=== PATIENT | female | born 1930 | race Caucasian/White ===

== ENCOUNTER 2016-08-31 12:35 | Day surgery (SDC) | payer OTHER ==
[2016-08-30 13:07] VITALS: BMI 24.4
[2016-08-31] MEDS ORDERED: PROPOFOL 20 ML ONE ×2 (13:59)
--- NOTE | 2016-08-31 14:08 | HP ---
History & Physical Update - History History: No Change - Physical Physical: No Change - Assessment Assessment: No Change - Plan Plan: No Change
[2016-08-31] MEDS ORDERED: IBUPROFEN 800 MG/8 ML IJ IVPB PRN (14:09)
[2016-08-31] MEDS ORDERED: ACETAMINOPHEN 1000 MG/100 ML VIAL (NON FORMULARY) IVPB ONE ×2 (14:09→15:30)
[2016-08-31] MEDS ORDERED: DEXTROSE 5%-0.45% SALINE 1,000 ML IV SCH (14:15)
[2016-08-31] MEDS ORDERED: CLINDAMYCIN 600 MG PREMIX BAG IVPB ONE (14:20)
[2016-08-31] MEDS ORDERED: CLINDAMYCIN PHOSPHATE 600 MG/4 ML VIAL ONE (14:25)
[2016-08-31] MEDS ORDERED: ACETAMINOPHEN INJECTION 100 ML IVPB ONE (15:32)
[2016-08-31] MEDS ORDERED: ONDANSETRON 4 MG/2 ML VIAL IVPUSH PRN (15:52)
[2016-08-31] MEDS ORDERED: LACTATED RINGERS SOLUTION 1,000 ML IV SCH (16:00)
[2016-08-31 16:35] VITALS: TEMP 98.2
[2016-08-31 19:55] VITALS: BP 102/58; PULSE 68
--- NOTE | 2016-09-01 10:15 | OP ---
DATE OF OPERATION: 08/31/2016 PREOPERATIVE DIAGNOSIS: Urge urinary incontinence. POSTOPERATIVE DIAGNOSIS: Urge urinary incontinence. PROCEDURE: InterStim implant lead and battery. SURGEON: Yariel Diallo MD ANESTHESIOLOGIST: . ESTIMATED BLOOD LOSS: Minimal. ANESTHESIA: Local with sedation. IMPLANTS: Battery and lead. PREOPERATIVE INDICATIONS: The patient is an 86-year-old female with persistence urge urinary incontinence. She has failed medication. She has tried a percutaneous evaluation with a greater than 50% improvement in her symptoms. She comes to the OR for InterStim implant. OPERATION: The patient was brought to the OR and placed on the table in a prone position. All pressure points were protected. The back was prepped and draped sterilely. The patient was given IV antibiotics and IV sedation. A timeout was performed. The S3 foramina were identified bilaterally using bony landmarks and fluoroscopy. The area above them was anesthetized with local lidocaine. Finder needles were placed on both sides. These were tested. A superior response to the stimulation at lower amplitude was noted on the left side. There was toe flexion, anal alpesh and vaginal stimulation. No evidence of calf rotation was seen. The position of the needle was confirmed on fluoroscopy. Using Seldinger technique, a quadruple lead was placed into the S3 foramen again using fluoroscopy as a guide. The lead was tested and all 4 leads had good response at low amplitude. This lead was then tunneled underneath the skin to an area over the left hip where an incision was made and a pocket was made for the battery. The lead was then connected to the battery. It was placed into the pocket. Impedance was checked and noted to be normal. Incisions were closed in two layers with 3-0 and 4-0 suture. Wounds were dressed. The patient was woken up. Radha [id number]
== END 2016-08-31 19:40 | disposition home or self-care (01) ==
LOC: JOR 12:35 → JASU-SURG 12:35
PROVIDERS: ATTEND Urology
PROC: 01HY0MZ Insertion of Neurostimulator Lead into Peripheral Nerve, Open Approach (ICD-10-PCS; 2016-08-31)
PROC: 0JH70BZ Insertion of Single Array Stimulator Generator into Back Subcutaneous Tissue and Fascia, Open Approach (ICD-10-PCS; principal; 2016-08-31 14:00)
DX: N39.41 Urge incontinence (principal)
CPT/HCPCS: 64581; 64590; C1767; C1778; 76000-TC; 94760

== ENCOUNTER 2017-11-01 13:46 | Day surgery (SDC) | payer OTHER ==
[2017-10-31 17:36] VITALS: BMI 27.0
[2017-11-01] MEDS ORDERED: LIDOCAINE HCL/PF 1% SDV 5ML VIAL ONE (14:44)
[2017-11-01] MEDS ORDERED: ACETAMINOPHEN 1000 MG/100 ML VIAL (NON FORMULARY) IVPB ONE (15:16)
--- NOTE | 2017-11-01 15:16 | HP ---
History & Physical Update - History History: No Change - Physical Physical: No Change - Assessment Assessment: No Change - Plan Plan: No Change
[2017-11-01] MEDS ORDERED: IBUPROFEN 800 MG/8 ML IJ IVPB PRN (15:29)
[2017-11-01] MEDS ORDERED: LACTATED RINGERS SOLUTION 1,000 ML IV SCH (15:30)
[2017-11-01] MEDS ORDERED: IBUPROFEN 800 MG/8 ML IJ IVPB SCH (15:30)
[2017-11-01] MEDS ORDERED: DEXTROSE 5%-0.45% SALINE 1,000 ML IV SCH (15:30)
[2017-11-01] MEDS ORDERED: PROPOFOL 20 ML ONE (15:36)
[2017-11-01] MEDS ORDERED: MIDAZOLAM HCL 2 MG/2 ML SINGLE DOSE VIAL ONE (15:36)
[2017-11-01] MEDS ORDERED: CLINDAMYCIN PHOSPHATE 600 MG/4 ML VIAL IVPB ONE (15:45)
[2017-11-01] MEDS ORDERED: CLINDAMYCIN PHOSPHATE 600 MG/4 ML VIAL ONE (15:47)
[2017-11-01] MEDS ORDERED: LIDOCAINE HCL 1%, 10 MG/ML (20ML VIAL) INF ONE (15:51)
[2017-11-01] MEDS ORDERED: IBUPROFEN 800 MG/8 ML IJ IVPB ONE (16:35)
[2017-11-01 17:28] VITALS: TEMP 97.8
[2017-11-01 17:52] VITALS: BP 130/57; PULSE 75
--- NOTE | 2017-11-05 09:50 | PATH ---
Surgical Pathology Report Patient Name: KHADAR LOYA Med. Rec. #: [id number] /Age/Gender: 1930 (Age: 87) / F Account: [id number] Location: [facility] SUR[facility]ICAL Taken: 11/01/2017 Received: 11/04/2017 Reported: 11/05/2017 Physicians: Yariel Diallo M.D. Specimen(s) Received OLD INTERSTIM IMPLANT Clinical History Urinary incontinence Final Diagnosis INTERSTIM IMPLANT, OLD, REMOVAL: PHARMACY RESOURCE TECH (INTERSTIM IMPLANT). MACROSCOPIC DIAGNOSIS. Electronically Signed Danay Vega M.D. Gross Description Received fresh labeled "old interStim implant," is a 5.0 x 4.3 x 0.7 cm arango metallic device, consistent with a battery. The specimen has the following inscription: "Medtronic InterStim II SN [id number]." There is a 15.5 cm in length portion of wire extending from one aspect. Also received within the same container is an additional 10 cm in length portion of wire. No soft tissue is present. No sections are submitted, gross only. DL/11/04/2017 saudi11/04/2017
--- NOTE | 2017-12-06 10:35 | OP ---
DATE OF OPERATION: 11/01/2017 PREOPERATIVE DIAGNOSIS: Urge urinary incontinence, nonfunctioning InterStim. PROCEDURE PERFORMED: Removal of old InterStim lead and battery, and replacement with new InterStim lead and battery. SURGEON: Yariel Diallo M.D. ANESTHESIA: IV sedation with local. INDICATIONS: The patient is an 87-year-old female who suffers from urge urinary incontinence. She previously had an InterStim placed, which is no longer functioning well and is causing her pain. X-rays of the previous implant revealed that at this point it is malpositioned. She comes to the OR for replacement. DESCRIPTION OF PROCEDURE: The patient was brought to the OR and placed on the table in the prone position. All pressure points were protected. The patient was given IV sedation and local anesthesia. The previous pocket site was visualized and local anesthesia was given. This was opened and the old battery was removed. Then a small incision was made paramedian to the midline, where the old lead was in place and this was also removed in total. A new needle was placed on the S3 foramen, more medial to the previous lead, and a good response was seen, with toe deflection and anal alpesh at low amplitude. Using the Seldinger technique, a quadripolar lead was placed under fluoroscopic guidance again through this needle, with 1 lead straddling the inner portion of the sacrum and the other 3 leads anterior to it. The lead was then tested, and we had a good response at low amplitude in all 4 leads. This was then deployed. It was then tunneled to the previous pocket site, which was irrigated copiously, and a new battery was placed. Good impedances were noted. All incisions were closed in 2 layers. The wounds were dressed. The patient was woken up. YARIEL DIALLO M.D. [id number]
== END 2017-11-01 18:01 | disposition home or self-care (01) ==
LOC: JASU-SURG 13:46
PROVIDERS: ATTEND Urology
PROC: 0JH70BZ Insertion of Single Array Stimulator Generator into Back Subcutaneous Tissue and Fascia, Open Approach (ICD-10-PCS; 2017-11-01)
PROC: 01PY0MZ Removal of Neurostimulator Lead from Peripheral Nerve, Open Approach (ICD-10-PCS; 2017-11-01)
PROC: 01HY0MZ Insertion of Neurostimulator Lead into Peripheral Nerve, Open Approach (ICD-10-PCS; 2017-11-01)
PROC: 0JPT0MZ Removal of Stimulator Generator from Trunk Subcutaneous Tissue and Fascia, Open Approach (ICD-10-PCS; principal; 2017-11-01 15:30)
DX: T85.113A Breakdown (mechanical) of implanted electronic neurostimulator, generator, initial encounter (principal); N39.41 Urge incontinence
CPT/HCPCS: 64581; 64590; C1767; C1778; 76000-TC-FY; 88300-TC; 94760

== ENCOUNTER 2018-01-16 09:43 | Day surgery (SDC) | payer OTHER ==
[2018-01-15 18:59] VITALS: BMI 23.0
[2018-01-16 10:16] LABS: EOS % 2.4 % (0-4.5); HEMATOCRIT 29.6 % (32.4-45.2); LYMPH % 23.8 % (8-40); MCH 29.7 pg (25.7-33.7); MCHC 33.8 g/dl (32.0-36.0); MEAN CELL VOLUME 87.9 fl (80-96); MEAN PLT VOLUME 6.9 fl (7.5-11.1); MONO % 9.6 % (3.8-10.2); NEUT % 63.2 % (42.8-82.8); PLATELET COUNT 238 K/MM3 (134-434); RBC 3.37 M/mm3 (3.60-5.2); RDW 13.6 % (11.6-15.6); WHITE BLOOD COUNT 5.3 K/mm3 (4.0-10.0)
[2018-01-16 10:35] LABS: INR 1.01 (0.83-1.09); PROTHROMBIN TIME (PATIENT) 11.9 SEC (9.7-13.0)
[2018-01-16 16:29] VITALS: BP 134/60; PULSE 69; TEMP 98.3
--- NOTE | 2018-01-20 16:29 | PATH ---
Surgical Pathology Report Patient Name: KHADAR LOYA [facility]. Rec. #: [id number] /Age/Gender: 1930 (Age: 87) / F Account: [id number] Location: RADIOLOGY INTER Taken: 01/16/2018 Received: 01/16/2018 Reported: 01/20/2018 Physicians: Deon Brown M.D. Zurdo Soriano M.D. Specimen(s) Received RIGHT LUNG BIOPSY Clinical History 87-year-old female with history of bladder cancer and lung neuroendocrine, status post resection, now with enlarging nodule at surgery bed. Final Diagnosis LUNG, RIGHT, UPPER LOBE, CT GUIDED CORE BIOPSY: NEUROENDOCRINE TUMOR, WELL-DIFFERENTIATED (CARCINOID TUMOR), SEE COMMENT. Comment: Histologic sections show a neoplastic proliferation of epithelioid cells with powdery chromatin, inconspicuous nucleoli, and variable amounts of amphophilic cytoplasm arranged in sheets and nests. Rare mitosis noted, 1 in 5 HPF. Few apoptotic bodies are seen; but no necrosis is identified. Immunohistochemical stains performed and interpreted at [facility] show the tumor is positive for AE1/3, CK7, TTF-1, chromogranin, synaptophysin; while negative for CK-20. Rare cells label for p63. Additional immunohistochemical stains performed at [place], [place] ([id number]) and interpreted at [facility] show the tumor is positive for CD56; while negative for MICHELET-3. Proliferative marker labels up to 10% of tumor nuclei (Ki-67,~10%). Overall morphology and immunophenotype supports the diagnosis. History of lung neuroendocrine tumor and bladder carcinoma is noted. Findings discussed with Dr. Soriano. Electronically Signed Danay Vega M.D. Gross Description Received in formalin labeled "right lung biopsy," are 3 samaniego, cylindrical portions of soft tissue averaging 0.3 cm in length and 0.1 cm in diameter. The specimens are submitted in toto in one cassette. saudi/01/16/2018
== END 2018-01-16 16:35 | disposition home or self-care (01) ==
LOC: JRADIR 09:43
PROVIDERS: ATTEND Internal Medicine Hematology & Oncology
PROC: 0BBC3ZX Excision of Right Upper Lung Lobe, Percutaneous Approach, Diagnostic (ICD-10-PCS; principal; 2018-01-16)
DX: C7A.090 Malignant carcinoid tumor of the bronchus and lung (principal); Z85.51 Personal history of malignant neoplasm of bladder
CPT/HCPCS: 32405; 36415; 71045-TC-FY; 76098-TC-FY; 77012-TC; 85025; 85610; 87899; 88305-TC; 88341-TC; 88342-TC

== ENCOUNTER 2018-02-27 07:34 | Day surgery (SDC) | payer OTHER ==
[2018-02-27 09:34] LABS: BASO % 0.7 % (0-2.0); EOS % 1.9 % (0-4.5); HEMATOCRIT 29.1 % (32.4-45.2); HEMOGLOBIN 10.3 GM/dL (10.7-15.3); LYMPH % 18.4 % (8-40); MCH 30.6 pg (25.7-33.7); MCHC 35.3 g/dl (32.0-36.0); MEAN CELL VOLUME 86.7 fl (80-96); MEAN PLT VOLUME 7.3 fl (7.5-11.1); MONO % 9.9 % (3.8-10.2); NEUT % 69.1 % (42.8-82.8); PLATELET COUNT 242 K/MM3 (134-434); RBC 3.36 M/mm3 (3.60-5.2); RDW 13.9 % (11.6-15.6); WHITE BLOOD COUNT 6.1 K/mm3 (4.0-10.0)
[2018-02-27 09:57] LABS: ALBUMIN 3.6 g/dl (3.4-5.0); ALK PHOS 72 U/L (45-117); ANION GAP 10 MMOL/L (8-16); BILIRUBIN,TOTAL 0.4 mg/dL (0.2-1); BLOOD UREA NITROGEN 38 mg/dL (7-18); CHLORIDE 109 mmol/L (98-107); CO2 22 mmol/L (21-32); CREATININE 1.2 mg/dL (0.55-1.3); GLUCOSE,RANDOM 108 mg/dL (74-106); POTASSIUM 4.3 mmol/L (3.5-5.1); SGOT/AST 14 U/L (15-37); SGPT/ALT 21 U/L (13-61); SODIUM 140 mmol/L (136-145); TOT PROT 7.4 g/dl (6.4-8.2)
[2018-02-27] MEDS ORDERED: OCTREOTIDE ACETATE,MI-SPHERES (SANDOSTATIN LAR) 30 MG VIAL IM ONE (10:00)
[2018-02-27 13:31] LABS: ALBUMIN 3.7 g/dl (3.4-5.0); BILIRUBIN,DIRECT 0.1 mg/dL (0.0-0.2); BILIRUBIN,TOTAL 0.4 mg/dL (0.2-1); MAGNESIUM 2.1 mg/dL (1.8-2.4); TOT PROT 7.3 g/dl (6.4-8.2)
[2018-02-27 17:25] VITALS: BP 110/54; PULSE 67; TEMP 98.3
== END 2018-02-27 11:00 | disposition home or self-care (01) ==
LOC: JONCCHEMO 07:34 → J7W 10:45 → JONCCHEMO 11:00
PROVIDERS: ATTEND Internal Medicine Hematology & Oncology
PROC: 3E013GC Introduction of Other Therapeutic Substance into Subcutaneous Tissue, Percutaneous Approach (ICD-10-PCS; principal; 2018-02-27)
DX: C7A.090 Malignant carcinoid tumor of the bronchus and lung (principal); Z85.51 Personal history of malignant neoplasm of bladder; Z76.89 Persons encountering health services in other specified circumstances
CPT/HCPCS: 36415; 80053; 80076; 83735; 85025; 96372; 96401; J2353

== ENCOUNTER 2018-03-27 07:18 | Day surgery (SDC) | payer OTHER ==
[2018-03-27] MEDS ORDERED: OCTREOTIDE ACETATE,MI-SPHERES (SANDOSTATIN LAR) 30 MG VIAL IM ONE (09:00)
[2018-03-27 11:13] LABS: BASO % 0.7 % (0-2.0); EOS % 1.9 % (0-4.5); HEMATOCRIT 25.9 % (32.4-45.2); HEMOGLOBIN 9.2 GM/dL (10.7-15.3); MCH 30.3 pg (25.7-33.7); MCHC 35.5 g/dl (32.0-36.0); MEAN CELL VOLUME 85.2 fl (80-96); MEAN PLT VOLUME 7.2 fl (7.5-11.1); MONO % 8.4 % (3.8-10.2); PLATELET COUNT 362 K/MM3 (134-434); RBC 3.04 M/mm3 (3.60-5.2); RDW 13.5 % (11.6-15.6); WHITE BLOOD COUNT 6.7 K/mm3 (4.0-10.0)
[2018-03-27 11:56] LABS: ALBUMIN 3.3 g/dl (3.4-5.0); ALK PHOS 111 U/L (45-117); BILIRUBIN,DIRECT 0.2 mg/dL (0.0-0.2); BILIRUBIN,TOTAL 0.4 mg/dL (0.2-1); MAGNESIUM 2.1 mg/dL (1.8-2.4); SGOT/AST 19 U/L (15-37); SGPT/ALT 21 U/L (13-61); TOT PROT 7.5 g/dl (6.4-8.2)
[2018-03-27 13:50] VITALS: BP 134/65; PULSE 64; TEMP 98.5
[2018-03-27 13:55] LABS: ANION GAP 8 MMOL/L (8-16); BLOOD UREA NITROGEN 33 mg/dL (7-18); CALCIUM 8.5 mg/dL (8.5-10.1); CHLORIDE 108 mmol/L (98-107); CO2 21 mmol/L (21-32); CREATININE 1.1 mg/dL (0.55-1.3); GLUCOSE,RANDOM 106 mg/dL (74-106); POTASSIUM 4.3 mmol/L (3.5-5.1); SODIUM 137 mmol/L (136-145)
[2018-03-28 04:15] LABS: SERUM IRON SATURATION 13 % (15-55); TOTAL IRON BINDING CAPACITY 267 ug/dL (250-450); UIBC 232 ug/dL (118-369)
== END 2018-03-27 13:00 | disposition home or self-care (01) ==
LOC: JONCCHEMO 07:18 → J7W 12:09 → JONCCHEMO 13:00
PROVIDERS: ATTEND Internal Medicine Hematology & Oncology
PROC: 3E013GC Introduction of Other Therapeutic Substance into Subcutaneous Tissue, Percutaneous Approach (ICD-10-PCS; principal; 2018-03-27)
DX: C7A.090 Malignant carcinoid tumor of the bronchus and lung (principal); Z85.51 Personal history of malignant neoplasm of bladder
CPT/HCPCS: 36415; 80048; 80076; 82728; 83540; 83550; 83735; 85025; 86316; 96372; 96401; J2353

== ENCOUNTER 2018-04-24 07:11 | Day surgery (SDC) | payer OTHER ==
[2018-04-24] MEDS ORDERED: OCTREOTIDE ACETATE,MI-SPHERES (SANDOSTATIN LAR) 30 MG VIAL IM ONE (10:00)
[2018-04-24 11:04] LABS: BASO % 1.2 % (0-2.0); EOS % 2.8 % (0-4.5); HEMATOCRIT 28.7 % (32.4-45.2); LYMPH % 20.3 % (8-40); MCH 30.7 pg (25.7-33.7); MCHC 34.8 g/dl (32.0-36.0); MEAN CELL VOLUME 88.3 fl (80-96); MEAN PLT VOLUME 7.5 fl (7.5-11.1); MONO % 8.8 % (3.8-10.2); NEUT % 66.9 % (42.8-82.8); PLATELET COUNT 229 K/MM3 (134-434); RBC 3.25 M/mm3 (3.60-5.2); RDW 14.9 % (11.6-15.6); WHITE BLOOD COUNT 5.7 K/mm3 (4.0-10.0)
[2018-04-24 11:49] LABS: ALBUMIN 3.7 g/dl (3.4-5.0); ALK PHOS 81 U/L (45-117); ANION GAP 8 MMOL/L (8-16); BILIRUBIN,DIRECT 0.2 mg/dL (0.0-0.2); BILIRUBIN,TOTAL 0.5 mg/dL (0.2-1); BLOOD UREA NITROGEN 37 mg/dL (7-18); CALCIUM 8.8 mg/dL (8.5-10.1); CHLORIDE 110 mmol/L (98-107); CO2 22 mmol/L (21-32); CREATININE 0.9 mg/dL (0.55-1.3); GLUCOSE,RANDOM 107 mg/dL (74-106); POTASSIUM 3.8 mmol/L (3.5-5.1); SGOT/AST 17 U/L (15-37); SGPT/ALT 22 U/L (13-61); SODIUM 141 mmol/L (136-145); TOT PROT 7.6 g/dl (6.4-8.2)
[2018-04-24 17:20] VITALS: BP 139/66; PULSE 72; TEMP 97.4
[2018-04-25 12:27] LABS: IGA IMMUNOGLOBULIN 258 mg/dL (64-422); IGG IMMUNOGLOBULIN 1095 mg/dL (700-1600); IGM IMMUNOGLOBULIN 524 mg/dL (26-217)
== END 2018-04-24 12:30 | disposition home or self-care (01) ==
LOC: JONCCHEMO 07:11 → J7W 11:25 → JONCCHEMO 12:30
PROVIDERS: ATTEND Internal Medicine Hematology & Oncology
PROC: 3E013GC Introduction of Other Therapeutic Substance into Subcutaneous Tissue, Percutaneous Approach (ICD-10-PCS; principal; 2018-04-24)
DX: C7A.090 Malignant carcinoid tumor of the bronchus and lung (principal); Z85.51 Personal history of malignant neoplasm of bladder
CPT/HCPCS: 36415; 80048; 80076; 82728; 82784; 83540; 83550; 83735; 85025; 86316; 96372; 96401; J2353

== ENCOUNTER 2018-05-22 05:54 | Day surgery (SDC) | payer OTHER ==
[2018-05-22] MEDS ORDERED: OCTREOTIDE ACETATE,MI-SPHERES (SANDOSTATIN LAR) 30 MG VIAL IM ONE (09:00)
[2018-05-22 10:16] VITALS: TEMP 97.6
[2018-05-22 10:51] LABS: EOS % 2.2 % (0-4.5); HEMATOCRIT 29.4 % (32.4-45.2); HEMOGLOBIN 10.3 GM/dL (10.7-15.3); LYMPH % 16.9 % (8-40); MCHC 34.9 g/dl (32.0-36.0); MEAN PLT VOLUME 7.3 fl (7.5-11.1); MONO % 8.6 % (3.8-10.2); NEUT % 71.3 % (42.8-82.8); PLATELET COUNT 257 K/MM3 (134-434); RBC 3.31 M/mm3 (3.60-5.2); WHITE BLOOD COUNT 5.4 K/mm3 (4.0-10.0)
[2018-05-22 11:17] LABS: ALBUMIN 3.7 g/dl (3.4-5.0); BILIRUBIN,DIRECT 0.1 mg/dL (0.0-0.2); BILIRUBIN,TOTAL 0.3 mg/dL (0.2-1); MAGNESIUM 2.2 mg/dL (1.8-2.4); TOT PROT 7.5 g/dl (6.4-8.2)
[2018-05-22 11:21] LABS: ALBUMIN 3.8 g/dl (3.4-5.0); ALK PHOS 81 U/L (45-117); ANION GAP 9 MMOL/L (8-16); BILIRUBIN,TOTAL 0.3 mg/dL (0.2-1); BLOOD UREA NITROGEN 36 mg/dL (7-18); CALCIUM 8.7 mg/dL (8.5-10.1); CHLORIDE 107 mmol/L (98-107); CO2 22 mmol/L (21-32); CREATININE 1.1 mg/dL (0.55-1.3); GLUCOSE,RANDOM 119 mg/dL (74-106); SGOT/AST 20 U/L (15-37); SGPT/ALT 22 U/L (13-61); SODIUM 138 mmol/L (136-145); TOT PROT 7.6 g/dl (6.4-8.2)
[2018-05-22 18:11] VITALS: BP 120/63; PULSE 67
== END 2018-05-22 11:30 | disposition home or self-care (01) ==
LOC: JONCCHEMO 05:54 → J7W 10:58 → JONCCHEMO 11:30
PROVIDERS: ATTEND Internal Medicine Hematology & Oncology
PROC: 3E013GC Introduction of Other Therapeutic Substance into Subcutaneous Tissue, Percutaneous Approach (ICD-10-PCS; principal; 2018-05-22)
DX: C7A.090 Malignant carcinoid tumor of the bronchus and lung (principal); Z85.51 Personal history of malignant neoplasm of bladder; Z76.89 Persons encountering health services in other specified circumstances
CPT/HCPCS: 36415; 80053; 80076; 83735; 85025; 86316; 96372; 96401; J2353

== ENCOUNTER 2018-06-19 07:16 | Day surgery (SDC) | payer OTHER ==
[2018-06-19] MEDS ORDERED: OCTREOTIDE ACETATE,MI-SPHERES (SANDOSTATIN LAR) 30 MG VIAL IM ONE (10:00)
[2018-06-19 10:01] VITALS: TEMP 97.5
[2018-06-19 10:26] LABS: BASO % 1.1 % (0-2.0); EOS % 2.8 % (0-4.5); HEMATOCRIT 31.7 % (32.4-45.2); HEMOGLOBIN 10.2 GM/dL (10.7-15.3); LYMPH % 20.7 % (8-40); MCHC 32.3 g/dl (32.0-36.0); MEAN CELL VOLUME 89.9 fl (80-96); MEAN PLT VOLUME 7.2 fl (7.5-11.1); MONO % 6.8 % (3.8-10.2); NEUT % 68.6 % (42.8-82.8); PLATELET COUNT 205 K/MM3 (134-434); RBC 3.53 M/mm3 (3.60-5.2); WHITE BLOOD COUNT 4.7 K/mm3 (4.0-10.0)
[2018-06-19 10:48] LABS: ALK PHOS 82 U/L (45-117); ANION GAP 9 MMOL/L (8-16); BILIRUBIN,TOTAL 0.3 mg/dL (0.2-1); BLOOD UREA NITROGEN 37 mg/dL (7-18); CALCIUM 8.9 mg/dL (8.5-10.1); CHLORIDE 108 mmol/L (98-107); CO2 23 mmol/L (21-32); GLUCOSE,RANDOM 121 mg/dL (74-106); POTASSIUM 4.1 mmol/L (3.5-5.1); SGOT/AST 18 U/L (15-37); SGPT/ALT 20 U/L (13-61); SODIUM 139 mmol/L (136-145); TOT PROT 7.9 g/dl (6.4-8.2)
[2018-06-19 10:49] LABS: ALBUMIN 3.8 g/dl (3.4-5.0); BILIRUBIN,DIRECT 0.1 mg/dL (0.0-0.2); BILIRUBIN,TOTAL 0.3 mg/dL (0.2-1); MAGNESIUM 2.1 mg/dL (1.8-2.4); TOT PROT 7.7 g/dl (6.4-8.2)
[2018-06-19 14:26] VITALS: BP 128/59; PULSE 76
== END 2018-06-19 11:10 | disposition home or self-care (01) ==
LOC: JONCCHEMO 07:16 → J7W 10:41 → JONCCHEMO 11:10
PROVIDERS: ATTEND Internal Medicine Hematology & Oncology
PROC: 3E013GC Introduction of Other Therapeutic Substance into Subcutaneous Tissue, Percutaneous Approach (ICD-10-PCS; principal; 2018-06-19)
DX: C7A.090 Malignant carcinoid tumor of the bronchus and lung (principal); Z85.51 Personal history of malignant neoplasm of bladder; Z76.89 Persons encountering health services in other specified circumstances
CPT/HCPCS: 36415; 71046-TC-FY; 71101-TC-RT-FY; 80053; 80076; 83735; 85025; 86316; 96372; 96401; J2353

== ENCOUNTER 2018-07-17 07:06 | Day surgery (SDC) | payer OTHER ==
[2018-07-17] MEDS ORDERED: OCTREOTIDE ACETATE,MI-SPHERES (SANDOSTATIN LAR) 30 MG VIAL IM ONE (09:00)
[2018-07-17 10:31] LABS: ALBUMIN 4.2 g/dl (3.4-5.0); ALK PHOS 88 U/L (45-117); ANION GAP 7 MMOL/L (8-16); BILIRUBIN,DIRECT 0.1 mg/dL (0.0-0.2); BILIRUBIN,TOTAL 0.3 mg/dL (0.2-1); BLOOD UREA NITROGEN 41 mg/dL (7-18); CALCIUM 9.3 mg/dL (8.5-10.1); CHLORIDE 111 mmol/L (98-107); CO2 23 mmol/L (21-32); CREATININE 1.1 mg/dL (0.55-1.3); GLUCOSE,RANDOM 96 mg/dL (74-106); MAGNESIUM 2.4 mg/dL (1.8-2.4); POTASSIUM 4.7 mmol/L (3.5-5.1); SGOT/AST 28 U/L (15-37); SGPT/ALT 24 U/L (13-61); SODIUM 141 mmol/L (136-145); TOT PROT 8.4 g/dl (6.4-8.2)
[2018-07-17 11:01] LABS: BASO % 0.9 % (0-2.0); EOS % 1.7 % (0-4.5); HEMOGLOBIN 10.1 GM/dL (10.7-15.3); MCH 30.3 pg (25.7-33.7); MCHC 33.7 g/dl (32.0-36.0); MEAN CELL VOLUME 90.2 fl (80-96); MEAN PLT VOLUME 7.1 fl (7.5-11.1); MONO % 8.9 % (3.8-10.2); NEUT % 69.5 % (42.8-82.8); PLATELET COUNT 229 K/MM3 (134-434); RBC 3.33 M/mm3 (3.60-5.2); RDW 13.8 % (11.6-15.6); WHITE BLOOD COUNT 5.4 K/mm3 (4.0-10.0)
[2018-07-17 15:21] VITALS: BP 123/58; PULSE 65; TEMP 97.9
== END 2018-07-17 11:40 | disposition home or self-care (01) ==
LOC: JONCCHEMO 07:06 → J7W 10:27 → JONCCHEMO 11:40
PROVIDERS: ATTEND Internal Medicine Hematology & Oncology
PROC: 3E013GC Introduction of Other Therapeutic Substance into Subcutaneous Tissue, Percutaneous Approach (ICD-10-PCS; principal; 2018-07-17)
DX: C7A.090 Malignant carcinoid tumor of the bronchus and lung (principal); Z85.51 Personal history of malignant neoplasm of bladder; Z76.89 Persons encountering health services in other specified circumstances
CPT/HCPCS: 36415; 80048; 80076; 83735; 85025; 86316; 96372; J2353

== ENCOUNTER 2018-08-14 07:30 | Day surgery (SDC) | payer OTHER ==
[2018-08-14] MEDS ORDERED: OCTREOTIDE ACETATE,MI-SPHERES (SANDOSTATIN LAR) 30 MG VIAL IM ONE (10:00)
[2018-08-14 10:18] LABS: BASO % 0.7 % (0-2.0); HEMATOCRIT 29.2 % (32.4-45.2); HEMOGLOBIN 9.7 GM/dL (10.7-15.3); LYMPH % 15.4 % (8-40); MCH 29.7 pg (25.7-33.7); MCHC 33.2 g/dl (32.0-36.0); MEAN CELL VOLUME 89.5 fl (80-96); MEAN PLT VOLUME 7.6 fl (7.5-11.1); MONO % 10.7 % (3.8-10.2); NEUT % 70.2 % (42.8-82.8); PLATELET COUNT 218 K/MM3 (134-434); RBC 3.26 M/mm3 (3.60-5.2); RDW 13.2 % (11.6-15.6); WHITE BLOOD COUNT 7.2 K/mm3 (4.0-10.0)
[2018-08-14 10:49] LABS: ALBUMIN 3.3 g/dl (3.4-5.0); BILIRUBIN,DIRECT 0.1 mg/dL (0.0-0.2); BILIRUBIN,TOTAL 0.3 mg/dL (0.2-1); CALCIUM 8.7 mg/dL (8.5-10.1); MAGNESIUM 2.4 mg/dL (1.8-2.4); POTASSIUM 4.4 mmol/L (3.5-5.1); TOT PROT 7.1 g/dl (6.4-8.2)
[2018-08-14 17:28] VITALS: BP 133/78; PULSE 69; TEMP 97.8
== END 2018-08-14 11:57 | disposition home or self-care (01) ==
LOC: JONCCHEMO 07:30 → J7W 11:13 → JONCCHEMO 11:57
PROVIDERS: ATTEND Internal Medicine Hematology & Oncology
PROC: 3E013GC Introduction of Other Therapeutic Substance into Subcutaneous Tissue, Percutaneous Approach (ICD-10-PCS; principal; 2018-08-14)
DX: C7A.090 Malignant carcinoid tumor of the bronchus and lung (principal); Z85.51 Personal history of malignant neoplasm of bladder; Z76.89 Persons encountering health services in other specified circumstances
CPT/HCPCS: 36415; 80048; 80076; 83735; 85025; 86316; 96372; J2353

== ENCOUNTER 2018-09-11 06:29 | Day surgery (SDC) | payer OTHER ==
[2018-09-11] MEDS ORDERED: OCTREOTIDE ACETATE,MI-SPHERES (SANDOSTATIN LAR) 30 MG VIAL IM ONE (09:00)
[2018-09-11 10:17] LABS: BASO % 0.9 % (0-2.0); EOS % 2.6 % (0-4.5); HEMOGLOBIN 9.8 GM/dL (10.7-15.3); LYMPH % 17.6 % (8-40); MCH 29.9 pg (25.7-33.7); MCHC 33.8 g/dl (32.0-36.0); MEAN CELL VOLUME 88.4 fl (80-96); MEAN PLT VOLUME 7.2 fl (7.5-11.1); MONO % 8.3 % (3.8-10.2); NEUT % 70.6 % (42.8-82.8); PLATELET COUNT 203 K/MM3 (134-434); RBC 3.28 M/mm3 (3.60-5.2); RDW 13.6 % (11.6-15.6); WHITE BLOOD COUNT 5.3 K/mm3 (4.0-10.0)
[2018-09-11 10:48] LABS: ALBUMIN 3.7 g/dl (3.4-5.0); BILIRUBIN,DIRECT 0.1 mg/dL (0.0-0.2); BILIRUBIN,TOTAL 0.4 mg/dL (0.2-1); BLOOD UREA NITROGEN 28.4 mg/dL (7-18); CALCIUM 9.1 mg/dL (8.5-10.1); MAGNESIUM 2.3 mg/dL (1.8-2.4); POTASSIUM 4.5 mmol/L (3.5-5.1); TOT PROT 7.3 g/dl (6.4-8.2)
[2018-09-11 16:45] VITALS: BP 149/57; PULSE 72; TEMP 97.6
[2018-09-12 04:10] LABS: SERUM IRON SATURATION 17 % (15-55); TOTAL IRON BINDING CAPACITY 325 ug/dL (250-450); UIBC 269 ug/dL (118-369)
== END 2018-09-11 12:00 | disposition home or self-care (01) ==
LOC: JONCCHEMO 06:29 → J7W 11:19 → JONCCHEMO 12:00
PROVIDERS: ATTEND Internal Medicine Hematology & Oncology
PROC: 3E013GC Introduction of Other Therapeutic Substance into Subcutaneous Tissue, Percutaneous Approach (ICD-10-PCS; principal; 2018-09-11)
DX: C7A.090 Malignant carcinoid tumor of the bronchus and lung (principal); Z85.51 Personal history of malignant neoplasm of bladder; Z76.89 Persons encountering health services in other specified circumstances
CPT/HCPCS: 36415; 80048; 80076; 82607; 82728; 82746; 83540; 83550; 83735; 84443; 85025; 85044; 86316; 96372; J2353

== ENCOUNTER 2018-10-09 06:11 | Day surgery (SDC) | payer OTHER ==
[2018-10-09 09:22] LABS: BASO % 0.7 % (0-2.0); EOS % 2.7 % (0-4.5); HEMATOCRIT 29.2 % (32.4-45.2); HEMOGLOBIN 9.8 GM/dL (10.7-15.3); LYMPH % 22.3 % (8-40); MCH 29.7 pg (25.7-33.7); MCHC 33.5 g/dl (32.0-36.0); MEAN CELL VOLUME 88.5 fl (80-96); MEAN PLT VOLUME 6.7 fl (7.5-11.1); MONO % 9.3 % (3.8-10.2); PLATELET COUNT 216 K/MM3 (134-434); RBC 3.29 M/mm3 (3.60-5.2); RDW 13.6 % (11.6-15.6); WHITE BLOOD COUNT 4.5 K/mm3 (4.0-10.0)
[2018-10-09 09:49] LABS: ALBUMIN 3.7 g/dl (3.4-5.0); BILIRUBIN,DIRECT 0.2 mg/dL (0.0-0.2); BILIRUBIN,TOTAL 0.4 mg/dL (0.2-1); BLOOD UREA NITROGEN 42.7 mg/dL (7-18); CALCIUM 8.6 mg/dL (8.5-10.1); CREATININE 1.2 mg/dL (0.55-1.3); MAGNESIUM 2.3 mg/dL (1.8-2.4); POTASSIUM 4.1 mmol/L (3.5-5.1); TOT PROT 7.5 g/dl (6.4-8.2)
[2018-10-09] MEDS ORDERED: OCTREOTIDE ACETATE,MI-SPHERES (SANDOSTATIN LAR) 30 MG VIAL IM ONE (10:00)
[2018-10-09 13:55] LABS: EPI CELLS 1.3 /HPF (0-5/HPF); HYALINE CASTS 1 /lpf (0-8); URINE APPEARANCE CLOUDY; URINE BACTERIA 3459.3 /hpf (NEGATIVE); URINE BILIRUBIN NEGATIVE (NEGATIVE); URINE COLOR YELLOW; URINE GLUCOSE (UA) NEGATIVE (NEGATIVE); URINE KETONE NEGATIVE (NEGATIVE); URINE LEUK ESTERASE 3+ (NEGATIVE); URINE NITRITE POSITIVE (NEGATIVE); URINE PROTEIN NEGATIVE (NEGATIVE); URINE RBC 16 /hpf (0-4); URINE UROBILINOGEN 0.2 mg/dL (0.2-1.0); URINE WBC 509 /hpf (0-5)
[2018-10-09 17:58] VITALS: BP 126/73; PULSE 66; TEMP 97.9
== END 2018-10-09 12:00 | disposition home or self-care (01) ==
LOC: JONCCHEMO 06:11 → J7W 11:02 → JONCCHEMO 12:00
PROVIDERS: ATTEND Internal Medicine Hematology & Oncology
PROC: 3E013GC Introduction of Other Therapeutic Substance into Subcutaneous Tissue, Percutaneous Approach (ICD-10-PCS; principal; 2018-10-09)
DX: C7A.090 Malignant carcinoid tumor of the bronchus and lung (principal); Z85.51 Personal history of malignant neoplasm of bladder; Z76.89 Persons encountering health services in other specified circumstances
CPT/HCPCS: 36415; 80048; 80076; 81003; 83735; 85025; 86316; 87086; 87186; 96372; J2353

== ENCOUNTER 2018-11-06 07:22 | Day surgery (SDC) | payer OTHER ==
[2018-11-06 09:37] LABS: BASO % 0.8 % (0-2.0); EOS % 1.4 % (0-4.5); HEMATOCRIT 29.5 % (32.4-45.2); LYMPH % 14.4 % (8-40); MCH 29.8 pg (25.7-33.7); MCHC 33.8 g/dl (32.0-36.0); MEAN CELL VOLUME 88.2 fl (80-96); MEAN PLT VOLUME 6.9 fl (7.5-11.1); MONO % 10.3 % (3.8-10.2); NEUT % 73.1 % (42.8-82.8); PLATELET COUNT 314 K/MM3 (134-434); RBC 3.34 M/mm3 (3.60-5.2); RDW 14.1 % (11.6-15.6); WHITE BLOOD COUNT 6.9 K/mm3 (4.0-10.0)
[2018-11-06] MEDS ORDERED: OCTREOTIDE ACETATE,MI-SPHERES (SANDOSTATIN LAR) 30 MG VIAL IM ONE (10:00)
[2018-11-06 10:08] LABS: BLOOD UREA NITROGEN 35.8 mg/dL (7-18); CALCIUM 9.2 mg/dL (8.5-10.1); CREATININE 1.5 mg/dL (0.55-1.3); MAGNESIUM 3.1 mg/dL (1.8-2.4); POTASSIUM 5.1 mmol/L (3.5-5.1)
[2018-11-06 10:11] LABS: ALBUMIN 3.8 g/dl (3.4-5.0); BILIRUBIN,DIRECT 0.1 mg/dL (0.0-0.2); BILIRUBIN,TOTAL 0.4 mg/dL (0.2-1)
[2018-11-06 16:48] VITALS: BP 122/65; PULSE 68; TEMP 97.5
== END 2018-11-06 11:35 | disposition home or self-care (01) ==
LOC: JONCCHEMO 07:22 → J7W 11:06 → JONCCHEMO 11:35
PROVIDERS: ATTEND Internal Medicine Hematology & Oncology
PROC: 3E013GC Introduction of Other Therapeutic Substance into Subcutaneous Tissue, Percutaneous Approach (ICD-10-PCS; principal; 2018-11-06)
DX: C7A.090 Malignant carcinoid tumor of the bronchus and lung (principal); Z85.51 Personal history of malignant neoplasm of bladder; Z76.89 Persons encountering health services in other specified circumstances
CPT/HCPCS: 36415; 80048; 80076; 83735; 85025; 86316; 87086; 87186; 96372; J2353

== ENCOUNTER → 2018-12-04 | Day surgery (SDC) | payer OTHER ==
[~2018-12-04] MED LIST: OCTREOTIDE ACETATE,MI-SPHERES (SANDOSTATIN LAR) 30 MG VIAL IM ONE
[2018-12-04 10:49] LABS: BASO % 1.1 % (0-2.0); EOS % 5.3 % (0-4.5); HEMATOCRIT 27.1 % (32.4-45.2); LYMPH % 13.4 % (8-40); MCHC 33.1 g/dl (32.0-36.0); MEAN CELL VOLUME 87.6 fl (80-96); MEAN PLT VOLUME 6.9 fl (7.5-11.1); NEUT % 72.2 % (42.8-82.8); PLATELET COUNT 384 K/MM3 (134-434); RBC 3.09 M/mm3 (3.60-5.2); WHITE BLOOD COUNT 7.1 K/mm3 (4.0-10.0)
[2018-12-04 11:04] LABS: ALBUMIN 3.2 g/dl (3.4-5.0); BILIRUBIN,DIRECT 0.2 mg/dL (0.0-0.2); BILIRUBIN,TOTAL 0.4 mg/dL (0.2-1); BLOOD UREA NITROGEN 30.1 mg/dL (7-18); CALCIUM 8.9 mg/dL (8.5-10.1); MAGNESIUM 2.2 mg/dL (1.8-2.4); POTASSIUM 4.2 mmol/L (3.5-5.1); TOT PROT 7.4 g/dl (6.4-8.2)
== END | disposition home or self-care (01) ==
LOC: JONCCHEMO 05:33
PROVIDERS: ATTEND Internal Medicine Hematology & Oncology
DX: Z53.8 Procedure and treatment not carried out for other reasons (principal)
CPT/HCPCS: 36415; 80048; 80076; 83735; 85025; 86316

== ENCOUNTER 2018-12-30 07:06 | Inpatient (IN) | payer OTHER ==
[2018-12-29 13:02] VITALS: BMI 21.1
[2018-12-30] MEDS ORDERED: PALONOSETRON HCL 0.25 MG/5 ML VIAL IVPUSH ONE (09:30)
[2018-12-30 10:12] LABS: HEMATOCRIT 29.4 % (32.4-45.2); HEMOGLOBIN 9.7 GM/dL (10.7-15.3); MCH 29.6 pg (25.7-33.7); MCHC 33.1 g/dl (32.0-36.0); MEAN CELL VOLUME 89.6 fl (80-96); MEAN PLT VOLUME 7.2 fl (7.5-11.1); PLATELET COUNT 235 K/MM3 (134-434); RBC 3.28 M/mm3 (3.60-5.2); WHITE BLOOD COUNT 6.7 K/mm3 (4.0-10.0)
[2018-12-30 10:42] LABS: ALBUMIN 3.7 g/dl (3.4-5.0); BILIRUBIN,TOTAL 0.6 mg/dL (0.2-1); BLOOD UREA NITROGEN 30.2 mg/dL (7-18); CREATININE 0.9 mg/dL (0.55-1.3); MAGNESIUM 2.1 mg/dL (1.8-2.4); POTASSIUM 4.1 mmol/L (3.5-5.1); PREALBUMIN 18.8 mg/dl (20-40); TOT PROT 7.6 g/dl (6.4-8.2)
[2018-12-30] MEDS ORDERED: PORTA CATH FLUSH 10 ML IVPUSH PRN (10:45)
[2018-12-30] MEDS ORDERED: DEXAMETHASONE SODIUM PHOSPHATE 10 MG in SODIUM CHLORIDE 50 ML IVPB ONE (13:30)
[2018-12-30] MEDS ORDERED: SODIUM CHLORIDE IVPB ONE (14:00)
[2018-12-30] MEDS ORDERED: CARBOPLATIN IVPB ONE (14:00)
[2018-12-30] MEDS ORDERED: ETOPOSIDE IV ONE (14:30)
[2018-12-30] MEDS ORDERED: SODIUM CHLORIDE IV ONE (14:30)
[2018-12-30] MEDS ORDERED: traMADol HCL 50 MG TABLET PO PRN (15:51)
--- NOTE | 2018-12-30 15:57 | HP ---
Admitting History and Physical - Smoking History Smoking history: Former smoker Have you smoked in the past 12 months: No If you are a former smoker, when did you quit?: 15 YRS - Alcohol/Substance Use Hx Alcohol Use: Yes (WINE WITH DINNER) Home Medications - Allergies Allergies/Adverse Reactions: Allergies Allergy/AdvReac Type Severity Reaction Status Date / Time codeine Allergy Intermediate Rash Verified 01/15/18 19:10 Penicillins Allergy Intermediate "DIARRHEA, Verified 01/15/18 19:10 RASH" salmon oil Allergy TONGUE Verified 12/29/18 13:06 SWELLS,THROAT RELAXES BLUEBERRIES Allergy "HEADACHE,THICK Uncoded 01/15/18 19:10 TONGUE" SHRIMP Allergy "THICK Uncoded 01/15/18 19:10 TONGUE" STRAWBERRIES Allergy "HEADACHE,THICK Uncoded 01/15/18 19:10 TONGUE" - Home Medications Home Medications: Ambulatory Orders Budesonide/Formeterol Fumarate [SYMBICORT 160/4.5mcg -] 1 inh PO BID 08/26/14 Magnesium Oxide [Magnesium] 500 mg PO DAILY 08/30/16 Nitroglycerin [Nitrostat] 0.4 mg SL PRN PRN 08/30/16 Verapamil HCl [Verapamil ER] 120 mg PO HS 08/30/16 Cholecalciferol (Vitamin D3) [Vitamin D] 2,000 unit PO DAILY 10/31/17 Turmeric Root Extract [Turmeric] 500 mg PO DAILY 10/31/17 Ubidecarenone [Co Q10] 200 mg PO DAILY 10/31/17 Cranberry Fruit Extract [Cranberry] 250 mg PO DAILY 01/15/18 Melatonin 1 mg PO PRN PRN 01/15/18 Vitamin B Complex 1 each PO DAILY 01/15/18 Omeprazole Magnesium [Prilosec] 10 mg PO DAILY 01/16/18 Solifenacin Succinate [Vesicare -] 5 mg PO PRN 01/16/18 Diphenhydramine HCl [Benadryl -] 25 mg PO Q6H 12/29/18 Physical Examination Vital Signs: Vital Signs Temperature 98.3 F 12/30/18 10:32 Pulse Rate 69 12/30/18 12:19 Respiratory Rate 21 H 12/30/18 12:19 Blood Pressure 155/57 L 12/30/18 12:19 O2 Sat by Pulse Oximetry (%) 100 12/30/18 12:19 Labs: CBC, BMP 12/30/18 09:48 12/30/18 09:48 Assessment/Plan 88 year old in for chemotherapy with carboplatinum and CATERING ASSOCIATE-16. History of carcinoid s/p Right lung resection. Initially treated with Sandostatin . Disease progressive with bone liver and progression in lung . Lengthy discussion with patient about treatment - pros/cons/ risks benefits no therapy vs chemotherpy . Patient opted for chemotherap.. Modified dosing of carboplatinum and CATERING ASSOCIATE-16. Last Vital Signs Temp Pulse Resp BP Pulse Ox 98.3 F 69 21 H 155/57 L 100 12/30/18 10:32 12/30/18 12:19 12/30/18 12:19 12/30/18 12:19 12/30/18 12:19 HEENT: RENZO, EOM Intact Oropharynx: No thrush, No mucositis Neck: Supple Nodes: Without adenopathy Breasts: Without masses Cor: RSR, No murmurs, No gallops Lungs: Clear to P&A Abd: Soft, Normal bowel sounds, No organomegaly Ext:No significant edema Skin: No rashes, Integument intact Current Medications Generic Name Dose Route Start Last Admin Trade Name Freq PRN Reason Stop Dose Admin Budesonide/Formoterol Fumarate 2 puff 12/30/18 22:00 Symbicort 160/4.5mcg - IH BID SIMEON Fluticasone Propionate 1 spray 12/30/18 22:00 Flonase - NS BID SIMEON IV Flush 10 ml 12/30/18 10:45 Rick-Cath Flush IVPUSH PRN PRN Protocol Etoposide 110 mg/ Sodium 505.5 mls @ 252.75 mls/hr 12/30/18 14:30 12/30/18 14 :11 Chloride IV 12/30/18 16:29 252.75 mls/hr ONCE ONE Administration Potassium Chloride/Dextrose/Sod Cl 20 meq in 1,000 mls @ 75 mls/hr 12/30/18 09 :00 D5-1/2ns+20 Meq Kcl - IV ASDIR SIMEON Pantoprazole Sodium 40 mg 12/31/18 10:00 Protonix - PO DAILY SIMEON Tramadol HCl 50 mg 12/30/18 15:51 Ultram - PO Q6H PRN PAIN LEVEL 4 - 6 Verapamil HCl 120 mg 10/09/19 10:00 Verapamil Hcl PO DAILY SIMEON Allergies - Penicillin Impression: Malignant carcinoid - progression on Sandostatin- For Carboplatinum/CATERING ASSOCIATE-16
[2018-12-30] MEDS ORDERED: PORTA CATH FLUSH 10 ML IVPUSH ONE (16:31)
[2018-12-30] MEDS: D5-1/2NS+20 MEQ KCL - 20 MEQ/1,000 ML INFUS.BAG IV SCH (16:56)
[2018-12-30 20:58] LABS: PLATELET ESTIMATE ADEQUATE
[2018-12-30] MEDS: FLUTICASONE PROP 0.05% 16 GM NASAL SPRAY NS SCH (21:16)
[2018-12-30] MEDS: VERAPAMIL HCL 120 MG E.R. TABLET PO SCH (21:16)
[2018-12-30] MEDS: BUDESONIDE/FORMETEROL FUMARATE 160/4.5 mcg INHALER IH SCH (21:16)
[2018-12-31] MEDS: D5-1/2NS+20 MEQ KCL - 20 MEQ/1,000 ML INFUS.BAG IV SCH ×2 (05:51→09:03)
[2018-12-31 08:13] LABS: BASO % 0.2 % (0-2.0); HEMATOCRIT 25.2 % (32.4-45.2); HEMOGLOBIN 8.5 GM/dL (10.7-15.3); MCH 30.1 pg (25.7-33.7); MCHC 33.7 g/dl (32.0-36.0); MEAN CELL VOLUME 89.3 fl (80-96); MEAN PLT VOLUME 7.5 fl (7.5-11.1); MONO % 2.3 % (3.8-10.2); NEUT % 92.5 % (42.8-82.8); PLATELET COUNT 188 K/MM3 (134-434); RBC 2.82 M/mm3 (3.60-5.2); RDW 14.8 % (11.6-15.6)
[2018-12-31 08:33] LABS: BILIRUBIN,TOTAL 0.4 mg/dL (0.2-1); BLOOD UREA NITROGEN 26.3 mg/dL (7-18); CALCIUM 8.2 mg/dL (8.5-10.1); CREATININE 1.1 mg/dL (0.55-1.3); MAGNESIUM 1.8 mg/dL (1.8-2.4); POTASSIUM 4.2 mmol/L (3.5-5.1); TOT PROT 6.6 g/dl (6.4-8.2)
[2018-12-31] MEDS: PANTOPRAZOLE 40 MG TABLET (FP) PO SCH (09:10)
[2018-12-31] MEDS: BUDESONIDE/FORMETEROL FUMARATE 160/4.5 mcg INHALER IH SCH ×2 (09:10→21:09)
[2018-12-31] MEDS: FLUTICASONE PROP 0.05% 16 GM NASAL SPRAY NS SCH ×2 (09:11→21:09)
[2018-12-31] MEDS ORDERED: PALONOSETRON HCL 0.25 MG/5 ML VIAL IVPUSH ONE (10:00)
[2018-12-31] MEDS ORDERED: DEXAMETHASONE SODIUM PHOSPHATE 10 MG in SODIUM CHLORIDE 50 ML IVPB ONE (10:00)
[2018-12-31] MEDS ORDERED: D5-1/2NS+20 MEQ KCL - 20 MEQ/1,000 ML INFUS.BAG IV SCH (10:00)
[2018-12-31] MEDS ORDERED: SODIUM CHLORIDE IVPB ONE (10:30)
[2018-12-31] MEDS ORDERED: CARBOPLATIN IVPB ONE (10:30)
[2018-12-31] MEDS ORDERED: DEXAMETHASONE SOD PHOSPHATE 4 MG/1 ML VIAL IVPB ONE (10:43)
[2018-12-31] MEDS ORDERED: ACETAMINOPHEN 650 MG/20.3 ML ORAL SOLUTION (CUPS) PO ONE (10:44)
[2018-12-31] MEDS ORDERED: PROCHLORPERAZINE MALEATE 5 MG TABLET PO PRN (10:45)
[2018-12-31] MEDS ORDERED: DEXAMETHASONE SOD PHOSPHATE 10 MG/1 ML VIAL IVPB ONE (10:51)
[2018-12-31] MEDS ORDERED: SODIUM CHLORIDE IV ONE (11:00)
[2018-12-31] MEDS ORDERED: ETOPOSIDE IV ONE (11:00)
[2018-12-31 12:42] LABS: ANISOCYTOSIS 0; MACROCYTOSIS 0; PLATELET ESTIMATE NORMAL
[2018-12-31] MEDS: VERAPAMIL HCL 120 MG E.R. TABLET PO SCH (21:09)
[2019-01-01 07:02] LABS: BASO % 0.1 % (0-2.0); HEMATOCRIT 28.8 % (32.4-45.2); HEMOGLOBIN 9.6 GM/dL (10.7-15.3); LYMPH % 3.7 % (8-40); MCH 29.8 pg (25.7-33.7); MCHC 33.3 g/dl (32.0-36.0); MEAN CELL VOLUME 89.6 fl (80-96); MEAN PLT VOLUME 7.7 fl (7.5-11.1); MONO % 2.2 % (3.8-10.2); PLATELET COUNT 225 K/MM3 (134-434); RBC 3.22 M/mm3 (3.60-5.2); WHITE BLOOD COUNT 9.2 K/mm3 (4.0-10.0)
[2019-01-01 07:35] LABS: ALBUMIN 3.4 g/dl (3.4-5.0); BILIRUBIN,TOTAL 0.3 mg/dL (0.2-1); BLOOD UREA NITROGEN 27.1 mg/dL (7-18); CALCIUM 8.7 mg/dL (8.5-10.1); POTASSIUM 4.4 mmol/L (3.5-5.1); TOT PROT 7.3 g/dl (6.4-8.2)
[2019-01-01] MEDS: D5-1/2NS+20 MEQ KCL - 20 MEQ/1,000 ML INFUS.BAG IV SCH (09:11)
[2019-01-01] MEDS: PANTOPRAZOLE 40 MG TABLET (FP) PO SCH (09:11)
[2019-01-01] MEDS: BUDESONIDE/FORMETEROL FUMARATE 160/4.5 mcg INHALER IH SCH (09:12)
[2019-01-01] MEDS: FLUTICASONE PROP 0.05% 16 GM NASAL SPRAY NS SCH (09:12)
--- NOTE | 2019-01-01 09:40 | PN ---
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 Now on carboplatin/etoposide D2 will increase dex to 20mg given the allergic reaction which subsided with benadryl ? nonspecific timing sutton, and prior h/o allergies decrease iv fluids monitor cbc/cmp/mg
[2019-01-01] MEDS ORDERED: D5-1/2NS+20 MEQ KCL - 20 MEQ/1,000 ML INFUS.BAG IV SCH (09:47)
[2019-01-01 11:36] LABS: ANISOCYTOSIS 0; MACROCYTOSIS 0; PLATELET ESTIMATE NORMAL
[2019-01-01 17:50] VITALS: BP 156/73; PULSE 77; TEMP 98.1
--- NOTE | 2019-01-01 18:51 | PN ---
Progress Note (short form) - Note Progress Note: Patient seen and examined Tolerated chemotherapy without ill effect Last Vital Signs Temp Pulse Resp BP Pulse Ox 98.1 F 77 18 156/73 100 01/01/19 17:00 01/01/19 17:00 01/01/19 17:00 01/01/19 17:00 12/30/18 12:19 HEENT: RENZO, EOM Intact Oropharynx: No thrush, No mucositis Cor: RSR, No murmurs, No gallops Lungs: Clear to P&A Abd: Soft, Normal bowel sounds, No organomegaly Ext:No significant edema Skin: No rashes, Integument intact CBC, BMP 01/01/19 06:00 01/01/19 06:00 Current Medications Generic Name Dose Route Start Last Admin Trade Name Freq PRN Reason Stop Dose Admin Budesonide/Formoterol Fumarate 2 puff 12/30/18 22:00 01/01/19 09:12 Symbicort 160/4.5mcg - IH 2 puff BID SIMEON Administration Fluticasone Propionate 1 spray 12/30/18 22:00 01/01/19 09:12 Flonase - NS 1 spray BID SIMEON Administration IV Flush 10 ml 12/30/18 10:45 Rick-Cath Flush IVPUSH PRN PRN Protocol Potassium Chloride/Dextrose/Sod Cl 20 meq in 1,000 mls @ 30 mls/hr 01/01/19 09 :47 D5-1/2ns+20 Meq Kcl - IV ASDIR SIMEON Pantoprazole Sodium 40 mg 12/31/18 10:00 01/01/19 09:11 Protonix - PO 40 mg DAILY SIMEON Administration Prochlorperazine Maleate 10 mg 12/31/18 10:45 12/31/18 18:16 Compazine - PO 10 mg Q8H PRN Administration NAUSEA AND/OR VOMITING Tramadol HCl 50 mg 12/30/18 15:51 Ultram - PO Q6H PRN PAIN LEVEL 4 - 6 Verapamil HCl 120 mg 12/30/18 22:00 12/31/18 21:09 Calan Sr - PO 120 mg HS SIMEON Administration Impression: 88 year old with carcinod whic progressed on sandostatin . Received 2 days of carboplatinum and BEVERAGE HOST-16. For office follow up.
== END 2019-01-01 19:48 | disposition home or self-care (01) | DRG 847 ==
LOC: JSAMEDAYSX 07:06 → EDSTATUS 11:00 → J7W 13:00
PROVIDERS: ADMIT Internal Medicine Hematology & Oncology; ATTEND Internal Medicine Hematology & Oncology
PROC: 05HM33Z Insertion of Infusion Device into Right Internal Jugular Vein, Percutaneous Approach (ICD-10-PCS; principal; 2018-12-30)
PROC: 0JH63WZ Insertion of Totally Implantable Vascular Access Device into Chest Subcutaneous Tissue and Fascia, Percutaneous Approach (ICD-10-PCS; 2018-12-30)
DX: Z51.11 Encounter for antineoplastic chemotherapy (principal); C34.90 Malignant neoplasm of unspecified part of unspecified bronchus or lung; C79.51 Secondary malignant neoplasm of bone; C78.7 Secondary malignant neoplasm of liver and intrahepatic bile duct
CPT/HCPCS: 36415; 36561; 76000-TC-FY; 76937-TC; 80053; 83735; 84134; 85025; 85027; 96367; 96375; 96413; 96415; 96417; J1100; J2469